=== PATIENT | male | born 1985 | race Caucasian/White ===

== ENCOUNTER 2020-05-09 11:16 | Emergency (ER) | payer BC, SELFPAY ==
[2020-05-09 11:27] VITALS: BP 163/99; PULSE 97; RESP 16; TEMP 37.3; O2SAT 98; BMI 31.3
--- NOTE | 2020-05-09 11:33 | CT_ITS ---
PROCEDURE: CT ABDOMEN PELVIS W CON CLINICAL INDICATION: iv only Lower abdominal pain with right-sided pain, right lower quadrant pain COMPARISON: ABDPELW/O CT ABD PELVIS W/O CONTRAST from 10/12/2015 TECHNIQUE: IV Contrast: 75ML OPTIRAY 350 Oral Contrast none Axial images obtained with sagittal and coronal reformats. All CT scans at the facility use one or more dose reduction, viz: automated exposure control, ma/kV adjustment per patient size (including targeted exams where dose is matched to indication, i.e. head), or iterative reconstruction technique. FINDINGS: LOWER THORAX: No acute finding. Metallic density is present in the upper aspect of the rectus muscle just inferior to the xiphoid from prior injury ABDOMEN & PELVIS: There is diffuse fatty liver infiltration. No focal liver lesion is evident. The gallbladder, spleen, adrenal glands, and pancreas have an unremarkable appearance. No renal or ureteral calculi. No hydronephrosis There is a small metallic density in the cecal region may be due to something the patient has ingested. The appendix has an unremarkable appearance. No intestinal obstruction or free air. There are few fluid-filled loops of small bowel in the lower pelvic region nonspecific. These are nondistended. No diverticulitis. No pelvic mass or abnormal fluid collection. There is a tiny umbilical hernia containing fat. No acute bony findings. There is anterior angulation of the coccyx which is chronic and could be due to an old injury. IMPRESSION: 1. No acute finding. No evidence of appendicitis or ureteral calculus. 2. There are a few scattered fluid-filled loops of small bowel nonspecific but could be seen with mild enteritis. 3. Other nonacute findings as described above Dictated by: John Merritt MD 05/09/2020 13:02 Electronically signed by John Merritt MD in [place] 05/09/2020 13:02
[2020-05-09 11:49] LABS: Microscopic, Urine URINE MICROSCOPIC (MICROSCOPIC)
[2020-05-09 11:52] LABS: Appearance,Urine CLEAR (Clear); Bilirubin,Urine Negative (Negative); Blood, Urine Negative (Negative); Color,Urine YELLOW (Yellow); Glucose,Urine (UA) Negative (Negative); Ketones,Urine Negative (Negative); Leukocyte Esterase,Urine Negative (Negative); Nitrate,Urine Negative (Negative); Protein,Urine Negative (Negative); Specific Gravity, Urine 1.025 (1.005-1.030)
[2020-05-09 11:52] LABS: Basophils % 0.5 % (0.1-2.0); Eosinophils # 0.2 K/mm3 (0.0-0.4); Hematocrit 40.3 % (42.0-52.0); Hemoglobin 13.9 g/dL (14.1-18.0); Lymphocytes # 2.8 K/mm3 (0.7-4.5); Lymphocytes % 53.8 % (10-50); Mean Corpuscular HGB Conc 34.4 g/dL (31.8-35.4); Mean Corpuscular Hemoglobin 33.8 pg (27.0-31.2); Mean Corpuscular Volume 98.2 fl (80-94); Mean Platelet Volume 7.9 fl (7.4-10.4); Monocytes # 0.2 K/mm3 (0.1-1.0); Monocytes % 3.6 % (1.7-9.3); Neutrophils % 38.1 % (37.0-80.0); Platelet Count 255 K/mm3 (142-424); Red Cell Distribution Width 13.4 % (11.5-17.5); White Blood Count 5.2 K/mm3 (4.8-10.8)
[2020-05-09 11:53] LABS: Chloride 107 mmol/L (98-107); MANUAL DIFFERENTIAL MANUAL DIFFERENTIAL (MANUAL DIFF); Potassium 3.9 mmoL/L (3.5-5.1); Sodium 142 mmol/L (136-145)
[2020-05-09 11:55] LABS: Amylase 74 U/L (30-110); Blood Urea Nitrogen 16 mg/dl (9-20); Creatinine Clearance Estimated 138 mL/min (50-200); Estimated Glomerular Filt Rate 86 ml/min (>60); GFR (African American) 103 ML/MIN (>60)
[2020-05-09 11:56] LABS: Alanine Aminotransferase 82 U/L (12-78); Albumin Level 4.6 g/dl (3.5-5.0); Albumin/Globulin Ratio 1.4 (1.1-1.8); Alkaline Phosphatase 79 U/L (38-126); Anion Gap 12.9 mEq/L (5-15); Aspartate Amino Transferase 43 U/L (17-59); Bilirubin,Total 0.6 mg/dl (0.2-1.3); Calcium 9.2 mg/dl (8.4-10.2); Carbon Dioxide 26 mmol/L (22.0-30.0); Globulin 3.3 g/dL (1.3-3.2); Glucose 111 mg/dl (74-100); Lipase 43 U/L (23-300); Total Protein,Serum 7.9 g/dl (6.3-8.2)
[2020-05-09 12:00] LABS: RBC,Urine Occasional #/hpf (0-3); Squamous Epithelial Cell,Urine Occasional #/hpf (0-5)
[2020-05-09 12:03] LABS: Eosinophils % 4 % (0-3); Lymphocytes % 62 % (10-50); Monocytes % 6 % (2-9); Neutrophils % 28 % (42-76); Platelet Estimate Normal; RBC Morphology Normal; Total Cells Counted 100
[2020-05-09 12:41] VITALS: BP 142/63; PULSE 60
--- NOTE | 2020-05-09 13:16 | HMH.EDNVD ---
ED Disposition Clinical Impression: Abdominal pain Qualifiers: Abdominal location: right lower quadrant Qualified Code(s): R10.31 - Right lower quadrant pain Disposition: Home, Self-Care Condition on Discharge: Good Instructions: DI for Acute Abdomen Additional Instructions: recheck if any problems and call pcp for follow up - discussed appendix concerns Referrals: Timmy Hector MD [Primary Care Provider] - - Critical Care Critical Care Time: No Attestation: On 05/09/20, the high probability of a clinically significant, sudden or life threatening deterioration of the following system(s) required my full and direct attention, intervention and personal management. The time I documented below is in addition to time spent performing reported procedures but includes the following listed in this critical care notation. Medical Decision Making - Medical Records Medical records reviewed: Yes: I reviewed the patient's medical records. - David Inquiry Pt receiving controlled substance: No Vital Signs: 05/09/20 11:27 05/09/20 12:41 Temperature 99.1 F Temperature Source Oral Pulse Rate [Left Radial] 97 H 60 Respiratory Rate 16 Blood Pressure [Right Arm] 163/99 H 142/63 H Blood Pressure Mean [Right Arm] 120 89 Blood Pressure Position [Right Arm] Sitting Sitting 02 Sat by Pulse Oximetry 98 Oxygen Delivery Method Nasal Cannula - Lab Data Lab results reviewed: Yes: I reviewed the patient's lab results. Lab Results 05/09/20 11:22: Urine Color Yellow, Urine Appearance Clear, Urine pH 6.0, Ur Specific [place] 1.025, Urine Protein Negative, Urine Glucose (UA) Negative, Urine Ketones Negative, Urine Blood Negative, Urine Nitrate Negative, Urine Bilirubin Negative, Urine Urobilinogen 1.0, Ur Leukocyte Esterase Negative, Urine RBC Occasional, Urine WBC None, Ur Squamous Epith Cells Occasional, Urine Bacteria None 05/09/20 11:35: WBC 5.2, RBC 4.10 L, Hgb 13.9 L, Hct 40.3 L, MCV 98.2 H, MCH 33.8 H, MCHC 34.4, RDW 13.4, Plt Count 255, MPV 7.9, Neut % (Auto) 38.1, Lymph % (Auto) 53.8 H, [place] % (Auto) 3.6, Eos % (Auto) 4.0, Baso % (Auto) 0.5, Neut # (Auto) 2.0, Lymph # (Auto) 2.8, [place] # (Auto) 0.2, Eos # (Auto) 0.2, Baso # (Auto) 0.0, Total Counted 100, Neutrophils % (Manual) 28 L, Lymphocytes % (Manual) 62 H, Monocytes % (Manual) 6, Eosinophils % (Manual) 4 H, Platelet Estimate Normal, RBC Morphology Normal 05/09/20 11:35: Sodium 142, Potassium 3.9, Chloride 107, Carbon Dioxide 26, Anion Gap 12.9, BUN 16, Creatinine 1.00, Estimated Creat Clear 138, Estimated GFR 86, Est GFR ( Amer) 103, Glucose 111 H, Calcium 9.2, Total Bilirubin 0.6, AST 43, ALT 82 H, Alkaline Phosphatase 79, Total Protein 7.9, Albumin 4.6, Globulin 3.3 H, Albumin/Globulin Ratio 1.4, Amylase 74, Lipase 43 Result diagrams: 05/09/20 11:35 05/09/20 11:35 Orders (Tests/Meds): ED MEDICATIONS Discontinued Medications Generic Name Dose Route Start Last Admin Trade Name Adryanq PRN Reason Stop Dose Admin Sodium Chloride 1,000 mls @ 999 mls/hr 05/09/20 11:45 05/09/20 11:37 Sod Chlor 0.9% 1000ml Bag IV 05/09/20 12:45 999 mls/hr .Q1H1M ASHLEY Administration Ioversol 75 ml 05/09/20 12:34 05/09/20 12:34 Rad-Optiray 350 100ml Vial IV 05/09/20 12:35 75 ml ONCE ONE Administration Protocol Sodium Chloride 10 ml 05/09/20 12:34 05/09/20 12:34 Rad-Saline Flush 10ml Syringe IV 05/09/20 12:35 10 ml ONCE ONE Administration ORDERS Category Date Time Status ESR [Erythrocyte Sedimentation Rate] Stat Lab 05/09/20 13:10 Ordered Peripheral Smear Review Routine Lab 05/09/20 13:11 Ordered - CT Data CT Scan: Abdomen, Pelvis Time Received: 13:[address] Reviewed: Yes: I have viewed the radiologist's interpretation Preliminary Findings: Normal/NAD Nausea/Vomiting/Diarrhea HPI - General Chief complaint: Abdominal Pain Stated complaint: sharp stomach pain Time Seen by Provider: 05/09/20 11:30 Mode of Arrival:
[2020-05-09 13:34] LABS: Erythrocyte Sedimentation Rate 19 mm/hr (0-15)
[2020-05-09 13:52] VITALS: BP 143/91; PULSE 53; RESP 16; TEMP 37.1; O2SAT 98
[2020-05-11 13:13] LABS: Peripheral Smear Review Scanned Result
== END 2020-05-09 13:55 | disposition home or self-care (01) ==
PROVIDERS: Emergency Provider Emergency Medicine; PCP Internal Medicine Adolescent Medicine
DX: R10.31 Right lower quadrant pain (principal)
CPT/HCPCS: 74177; 80053; 81001; 82150; 83690; 85007; 85025; 85651; 96365; 96375; 99283; Q9967

== ENCOUNTER 2021-05-17 11:12 | Emergency (ER) | payer BC, SELFPAY ==
[2021-05-17 11:15] VITALS: BP 147/79; PULSE 70; RESP 20; TEMP 36.8; O2SAT 96; BMI 31.3
--- NOTE | 2021-05-17 11:31 | ECG_ITS ---
APPROVED REPORT Exam: Resting ECG HR:63 bpm ECG Measurements Heart Rate 63 AXES DC 126 P 45 QRSd 90 QRS 12 QT 384 T 21 QTc 392 Conclusion Normal sinus rhythm Normal ECG Electronically signed by : Timmy Hector, 05/18/2021 07:17:05
--- NOTE | 2021-05-17 11:44 | HMH.EDUTC ---
[facility] [place] Impression: Muscle strain Disposition: Home, Self-Care Condition on Discharge: Good Instructions: DI for Muscle Strain Referrals: Timmy Hector MD [Primary Care Provider] - 3 days Forms: Work/School Release Medical Decision Making - Medical Records Medical records reviewed: No: I reviewed the patient's medical records. - David Inquiry Pt receiving controlled substance: No Vital Signs: 05/17/21 11:15 05/17/21 12:05 05/17/21 12:11 Temperature 98.2 F 98.4 F 98.5 F Temperature Source Oral Oral Oral Pulse Rate Pulse Rate [Right Brachial] 70 88 67 Respiratory Rate 20 19 16 Blood Pressure Blood Pressure [Right Arm] 147/79 H 144/87 H 145/88 H Blood Pressure Mean [Right Arm] 101 106 107 Blood Pressure Source [Right Arm] Automatic Cuff Automatic Cuff Blood Pressure Position [Right Arm] Sitting Sitting 02 Sat by Pulse Oximetry 96 99 98 Oxygen Delivery Method Room Air 05/17/21 14:42 Temperature 97.9 F Temperature Source Pulse Rate 77 Pulse Rate [Right Brachial] Respiratory Rate 14 Blood Pressure 125/83 Blood Pressure [Right Arm] Blood Pressure Mean [Right Arm] Blood Pressure Source [Right Arm] Blood Pressure Position [Right Arm] 02 Sat by Pulse Oximetry Oxygen Delivery Method - Lab Data Lab results reviewed: Yes: I reviewed the patient's lab results. Lab Results 05/17/21 11:35: Urine Color Yellow, Urine Appearance Clear, Urine pH 6.0, Ur Specific [place] >= 1.030, Urine Protein Negative, Urine Glucose (UA) Negative, Urine Ketones Negative, Urine Blood Negative, Urine Nitrate Negative, Urine Bilirubin Negative, Urine Urobilinogen 0.2, Ur Leukocyte Esterase Negative, Urine RBC Occasional, Urine WBC Occasional, Ur Squamous Epith Cells None, Urine Bacteria Trace 05/17/21 11:37: Urine Color Yellow, Urine Appearance Clear, Urine pH 6.0, Ur Specific [place] 1.005, Urine Protein Negative, Urine Glucose (UA) Negative, Urine Ketones Negative, Urine Blood Trace, Urine Nitrate Negative, Urine Bilirubin Negative, Urine Urobilinogen 0.2, Ur Leukocyte Esterase Negative 05/17/21 12:24: WBC 5.5, RBC 4.42 L, Hgb 14.6, Hct 42.4, MCV 95.8 H, MCH 32.9 H, MCHC 34.4, RDW 13.3, Plt Count 261, MPV 8.3, Neut % (Auto) 47.0, Lymph % (Auto) 43.1, [place] % (Auto) 4.7, Eos % (Auto) 4.6, Baso % (Auto) 0.6, Neut # (Auto) 2.6, Lymph # (Auto) 2.4, [place] # (Auto) 0.3, Eos # (Auto) 0.3, Baso # (Auto) 0.0 05/17/21 12:24: Sodium 141, Potassium 4.1, Chloride 105, Carbon Dioxide 27, Anion Gap 13.1, BUN 14, Creatinine 0.90, Estimated Creat Clear 151, Estimated GFR 96, Est GFR ( Amer) 116, Glucose 96, Calcium 9.2, Total Bilirubin 0.6, AST 38, ALT 71, Alkaline Phosphatase 69, Total Protein 8.1, Albumin 4.8, Globulin 3.3 H, Albumin/Globulin Ratio 1.5, Lipase 72 Result diagrams: 05/17/21 12:24 05/17/21 12:24 Medical Decision Narrative: He was transferred to from the [facility] to the ER due to his chest pain. [facility] [place] General Stated complaint: left rib pain Time Seen by Provider: 05/17/21 11:44 - History of Present Illness Provider Complaint: He c/o left sided chest pain for the the past 2 days. He denies any known injury. He states that the pain is continious. - Related Data Home Medications Medication Instructions Recorded Confirmed Omeprazole [Omeprazole 20mg Tab] 20 mg PO DAILY 05/09/20 05/17/21 Allergies Allergy/AdvReac Type Severity Reaction Status Date / Time No Known Allergies Allergy Verified 10/23/20 11:53 [facility] History - Hepatitis A Screen Attestation statement:: This patient has been screened for Hepatitis A risk factors. I have reviewed the patient's past medical history: Yes Medical History: Denies:: Cancer, Diabetes Mellitus Type 1, Diabetes Mellitus Type 2, MRSA Amputation: No Fractures: No - Social History Smoking Status: Current every day smoker Tobacco Type: smokeless tobacco # Packs/Day (cigarettes): 1 Alcohol Intake: never Occupational Status
[2021-05-17 12:05] VITALS: BP 144/87; PULSE 88; RESP 19; TEMP 36.9; O2SAT 99
[2021-05-17 12:11] VITALS: BP 145/88; PULSE 67; RESP 16; TEMP 36.9; O2SAT 98; BMI 31.3
--- NOTE | 2021-05-17 12:19 | XR_ITS ---
PROCEDURE: XR CHEST 2V CLINICAL HISTORY: left ant rib pain after pulling heavy object COMPARISON: CR CXR CHEST(2 VIEWS-NOT PORTABLE) from 09/05/2013 CR CXR CHEST(2 VIEWS-NOT PORTABLE) from 10/12/2015 CR CXR2V XR chest 2V from 12/30/2018 FINDINGS: The cardiomediastinal silhouette and pulmonary vascularity are within normal limits. The lungs are clear without infiltrates, suspicious nodules, or pleural effusions. No acute bony abnormalities. Metallic foreign body again noted overlying the left medial upper abdomen region. IMPRESSION: No acute findings. Dictated by: Thang Landrum MD 05/17/2021 13:40 Thang Landrum MD in [place] 05/17/2021 13:40
--- NOTE | 2021-05-17 12:19 | CT_ITS ---
PROCEDURE: CT ABDOMEN PELVIS WO CON CLINICAL INDICATION: LUQ abd pain COMPARISON: CT CT ABDOMEN PELVIS W CON from 05/09/2020 TECHNIQUE: Axial images obtained with sagittal and coronal reformats. All CT scans at the facility use one or more dose reduction, viz: automated exposure control, ma/kV adjustment per patient size (including targeted exams where dose is matched to indication, i.e. head), or iterative reconstruction technique. FINDINGS: Scans lung bases show a few small calcified granuloma in the lingula of the left upper lobe and a few small calcified right hilar lymph nodes. No other abnormality. No focal hepatic or splenic lesion. Some diffuse fatty infiltration of the liver noted. A few calcifications noted in the spleen. There are a few tiny bilateral renal calculi. No ureteral or bladder calculi. No CT evidence of obstructive uropathy. No upper abdominal lymphadenopathy. Abdominal aorta is normal. Moderate amount of stool in the colon. Appendix is normal. No distended large or small bowel or bowel wall thickening. Bladder is normal. Prostate gland and seminal vesicles appear normal. A few non-specific mildly enlarged bilateral inguinal lymph nodes again noted. Small unchanged bilateral fat containing inguinal rings without bowel within them. Mild degenerative changes of the lower lumbar spine. No acute bony abnormality. IMPRESSION: Mild bilateral nephrolithiasis. No CT evidence of obstructive uropathy. No free intraperitoneal air or fluid. Normal appendix. Moderate amount of stool in the colon. A few small nonspecific bilateral mildly enlarged inguinal lymph nodes and small bilateral fat unchanged fat containing inguinal rings without bowel within them. Dictated by: Thang Landrum MD 05/17/2021 13:34 Thang Landrum MD in [place] 05/17/2021 13:34
[2021-05-17 12:34] LABS: Microscopic, Urine URINE MICROSCOPIC (MICROSCOPIC)
[2021-05-17 12:36] LABS: Appearance,Urine CLEAR (Clear); Bilirubin,Urine Negative (Negative); Blood, Urine Negative (Negative); Color,Urine YELLOW (Yellow); Glucose,Urine (UA) Negative (Negative); Ketones,Urine Negative (Negative); Leukocyte Esterase,Urine Negative (Negative); Nitrate,Urine Negative (Negative); Protein,Urine Negative (Negative); Specific Gravity, Urine >= 1.030 (1.005-1.030); Urobilinogen,Urine 0.2 EU/dl (0.2)
[2021-05-17 12:36] LABS: Basophils % 0.6 % (0.1-2.0); Eosinophils # 0.3 K/mm3 (0.0-0.4); Eosinophils % 4.6 % (0.1-12.0); Hematocrit 42.4 % (42.0-52.0); Hemoglobin 14.6 g/dL (14.1-18.0); Lymphocytes # 2.4 K/mm3 (0.7-4.5); Lymphocytes % 43.1 % (10-50); Mean Corpuscular HGB Conc 34.4 g/dL (31.8-35.4); Mean Corpuscular Hemoglobin 32.9 pg (27.0-31.2); Mean Corpuscular Volume 95.8 fl (80-94); Mean Platelet Volume 8.3 fl (7.4-10.4); Monocytes # 0.3 K/mm3 (0.1-1.0); Monocytes % 4.7 % (1.7-9.3); Neutrophils # 2.6 K/mm3 (1.8-7.8); Platelet Count 261 K/mm3 (142-424); Red Blood Count 4.42 M/mm3 (4.60-6.20); Red Cell Distribution Width 13.3 % (11.5-17.5); White Blood Count 5.5 K/mm3 (4.8-10.8)
[2021-05-17 12:44] LABS: Bacteria,Urine Trace /lpf; RBC,Urine Occasional #/hpf (0-3); WBC,Urine Occasional #/hpf (0-3)
--- NOTE | 2021-05-17 12:47 | HMH.EDGENADL ---
ED Disposition Clinical Impression: Muscle strain Disposition: Home, Self-Care Condition on Discharge: Good Instructions: DI for Muscle Strain Referrals: Timmy Hector MD [Primary Care Provider] - 3 days - Critical Care Critical Care Time: No Attestation: On 05/17/21, the high probability of a clinically significant, sudden or life threatening deterioration of the following system(s) required my full and direct attention, intervention and personal management. The time I documented below is in addition to time spent performing reported procedures but includes the following listed in this critical care notation. Medical Decision Making - Medical Records Medical records reviewed: Yes: I reviewed the patient's medical records. - David Inquiry Pt receiving controlled substance: No Vital Signs: 05/17/21 11:15 05/17/21 12:05 05/17/21 12:11 Temperature 98.2 F 98.4 F 98.5 F Temperature Source Oral Oral Oral Pulse Rate [Right Brachial] 70 88 67 Respiratory Rate 20 19 16 Blood Pressure [Right Arm] 147/79 H 144/87 H 145/88 H Blood Pressure Mean [Right Arm] 101 106 107 Blood Pressure Source [Right Arm] Automatic Cuff Automatic Cuff Blood Pressure Position [Right Arm] Sitting Sitting 02 Sat by Pulse Oximetry 96 99 98 Oxygen Delivery Method Room Air - Lab Data Lab results reviewed: Yes: I reviewed the patient's lab results. Lab Results 05/17/21 11:35: Urine Color Yellow, Urine Appearance Clear, Urine pH 6.0, Ur Specific [place] >= 1.030, Urine Protein Negative, Urine Glucose (UA) Negative, Urine Ketones Negative, Urine Blood Negative, Urine Nitrate Negative, Urine Bilirubin Negative, Urine Urobilinogen 0.2, Ur Leukocyte Esterase Negative, Urine RBC Occasional, Urine WBC Occasional, Ur Squamous Epith Cells None, Urine Bacteria Trace 05/17/21 12:24: WBC 5.5, RBC 4.42 L, Hgb 14.6, Hct 42.4, MCV 95.8 H, MCH 32.9 H, MCHC 34.4, RDW 13.3, Plt Count 261, MPV 8.3, Neut % (Auto) 47.0, Lymph % (Auto) 43.1, [place] % (Auto) 4.7, Eos % (Auto) 4.6, Baso % (Auto) 0.6, Neut # (Auto) 2.6, Lymph # (Auto) 2.4, [place] # (Auto) 0.3, Eos # (Auto) 0.3, Baso # (Auto) 0.0 05/17/21 12:24: Sodium 141, Potassium 4.1, Chloride 105, Carbon Dioxide 27, Anion Gap 13.1, BUN 14, Creatinine 0.90, Estimated Creat Clear 151, Estimated GFR 96, Est GFR ( Amer) 116, Glucose 96, Calcium 9.2, Total Bilirubin 0.6, AST 38, ALT 71, Alkaline Phosphatase 69, Total Protein 8.1, Albumin 4.8, Globulin 3.3 H, Albumin/Globulin Ratio 1.5, Lipase 72 Result diagrams: 05/17/21 12:24 05/17/21 12:24 - Radiology Data #1 Image(s): Chest Image Reviewed: Yes I reviewed the patient's radiology results Preliminary Findings: Normal/NAD - CT Data CT Scan: Abdomen, Pelvis Time Received: 13:[address] Reviewed: Yes: I have reviewed the patient's CT results Findings Narrative: Mild bilateral nephrolithiasis. No CT evidence of obstructive uropathy. No free intraperitoneal air or fluid. Normal appendix. Moderate amount of stool in the colon. A few small nonspecific bilateral mildly enlarged inguinal lymph nodes and small bilateral fat unchanged fat containing inguinal rings without bowel within them. Medical Decision Narrative: Suspect muscle strain. CT abdomen/pelvis and chest x-ray negative for any acute pathology including no rib fractures, pneumothorax, perforated viscus or free air in the abdomen, obstructive uropathy, bowel obstruction. Labs are reassuring. Commended anti-inflammatories and follow-up with PCP in 2 to 3 days for reevaluation. General Adult HPI - General Chief complaint: Abdominal Pain Stated complaint: left rib pain Time Seen by Provider: 05/17/21 12:15 Mode of Arrival: Ambulatory Limitations: No Limitations Description of Symptoms (Recalled from ER Triage Doc. by RN): pt c/o LLQ and LUQ pain thats 5/10 and constant. pt was lightheaded at work this morning as well. pt states when he stretches out it hurts worse and when he is balle
[2021-05-17 12:50] LABS: Chloride 105 mmol/L (98-107); Potassium 4.1 mmoL/L (3.5-5.1); Sodium 141 mmol/L (136-145)
[2021-05-17 12:53] LABS: Alanine Aminotransferase 71 U/L (12-78); Albumin Level 4.8 g/dl (3.5-5.0); Albumin/Globulin Ratio 1.5 (1.1-1.8); Alkaline Phosphatase 69 U/L (38-126); Anion Gap 13.1 mEq/L (5-15); Aspartate Amino Transferase 38 U/L (17-59); Bilirubin,Total 0.6 mg/dl (0.2-1.3); Blood Urea Nitrogen 14 mg/dl (9-20); Calcium 9.2 mg/dl (8.4-10.2); Carbon Dioxide 27 mmol/L (22.0-30.0); Creatinine Clearance Estimated 151 mL/min (50-200); Estimated Glomerular Filt Rate 96 ml/min (>60); GFR (African American) 116 ML/MIN (>60); Globulin 3.3 g/dL (1.3-3.2); Glucose 96 mg/dl (74-100); Lipase 72 U/L (23-300); Total Protein,Serum 8.1 g/dl (6.3-8.2)
[2021-05-17 14:02] LABS: Apearance,Urine Clear (Clear); Bilirubin,Urine Negative (Negative); Blood, Urine Trace (Negative); Color,Urine Yellow (Yellow); Glucose,Urine (UA) Negative (Negative); Ketones,Urine Negative (Negative); Protein,Urine Negative (Negative); Specific Gravity, Urine 1.005 (1.005-1.030); UTC Leukocyte Esterase,Urine Negative (Negative); UTC Nitrate,Urine Negative (Negative); Urobilinogen,Urine 0.2 EU/dl (0.2)
[2021-05-17 14:42] VITALS: BP 125/83; PULSE 77; RESP 14; TEMP 36.6
== END 2021-05-17 14:49 | disposition home or self-care (01) ==
LOC: UTC 11:26 → ER 12:02
PROVIDERS: Nurse Practitioner Family; Emergency Provider Emergency Medicine; PCP Internal Medicine Adolescent Medicine
DX: S39.011A Strain of muscle, fascia and tendon of abdomen, initial encounter (principal); X50.0XXA Overexertion from strenuous movement or load, initial encounter; F17.290 Nicotine dependence, other tobacco product, uncomplicated; R03.0 Elevated blood-pressure reading, without diagnosis of hypertension
CPT/HCPCS: 71046; 74176; 80053; 81001; 81003; 83690; 85025; 93005; 93041; 99284

== ENCOUNTER 2021-06-24 09:24 | Emergency (ER) | payer BC, SELFPAY ==
[2021-06-24 09:24] VITALS: BP 164/84; PULSE 80; RESP 16; TEMP 36.4; O2SAT 97; BMI 33.2
--- NOTE | 2021-06-24 09:49 | CT_ITS ---
PROCEDURE: CT ABDOMEN PELVIS WO CON CLINICAL INDICATION: R flank pain Right flank pain COMPARISON: CT ABDPELW/O CT ABD PELVIS W/O CONTRAST from 10/12/[address] ABDOMEN PELVIS WO CON from 05/17/2021 TECHNIQUE: Axial images obtained with sagittal and coronal reformats. All CT scans at the facility use one or more dose reduction, viz: automated exposure control, ma/kV adjustment per patient size (including targeted exams where dose is matched to indication, i.e. head), or iterative reconstruction technique. FINDINGS: LOWER THORAX: No acute finding. Small metallic density is present in the lower chest medially ABDOMEN & PELVIS: There is diffuse fatty liver infiltration. There is some focal fatty sparing in the gallbladder fossa region. No obvious hepatic mass evident although lesions may not be detected with this degree of fatty infiltration without IV contrast. Spleen and adrenal glands have an unremarkable appearance as does the pancreas. No evidence of intestinal obstruction or free air. No renal or ureteral calculi evident. No hydronephrosis. There are few small para-aortic lymph nodes which are unchanged. No evidence of appendicitis. Sigmoid diverticula versus nondistended haustra are noted. No evidence of diverticulitis. There are 2 calcific densities in the perineal region centrally measuring 3 and 6 mm.. These may represent phleboliths however, the largest of the 2 calcification is in a slightly different spot compared to the previous exam raising the suspicion of a urethral calculus. There are degenerative changes in the lower thoracic spine. There is anterior angulation of the coccyx. There are small bilateral inguinal hernias containing fat in there is a small umbilical hernia containing fat. IMPRESSION: 1. No renal or ureteral calculi. 2. Possible penile urethral stone versus a phleboliths. 3. Other nonacute findings as described above. Dictated by: John Merritt MD 06/24/2021 11:06 John Merritt MD in [place] 06/24/2021 11:06
--- NOTE | 2021-06-24 09:56 | HMH.EDGENADL ---
ED Disposition Clinical Impression: Abdominal pain Qualifiers: Abdominal location: upper abdomen, unspecified Qualified Code(s): R10.10 - Upper abdominal pain, unspecified Disposition: Home, Self-Care Condition on Discharge: Good Instructions: DI for Abdominal Pain-Adult Prescriptions: Ibuprofen [Ibuprofen 800mg Tablet] 800 mg PO TIDP PRN #20 tab PRN Reason: Moderate Pain Transmission Status: Pending to [id number] Referrals: Timmy Hector MD [Primary Care Provider] - - Critical Care Critical Care Time: No Attestation: On 06/24/21, the high probability of a clinically significant, sudden or life threatening deterioration of the following system(s) required my full and direct attention, intervention and personal management. The time I documented below is in addition to time spent performing reported procedures but includes the following listed in this critical care notation. Medical Decision Making - Medical Records Medical records reviewed: Yes: I reviewed the patient's medical records. - David Inquiry Pt receiving controlled substance: No Vital Signs: 06/24/21 09:24 06/24/21 10:30 Temperature 97.5 F L Temperature Source Oral Pulse Rate 72 Pulse Rate [Right Radial] 80 Respiratory Rate 16 Blood Pressure 112/68 Blood Pressure [Right Arm] 164/84 H Blood Pressure Mean 82 Blood Pressure Mean [Right Arm] 110 Blood Pressure Source [Right Arm] Automatic Cuff Blood Pressure Position [Right Arm] Sitting 02 Sat by Pulse Oximetry 97 97 Oxygen Delivery Method Room Air - Lab Data Lab Results 06/24/21 09:58: WBC 5.7, RBC 4.19 L, Hgb 13.6 L, Hct 41.2 L, MCV 98.3 H, MCH 32.5 H, MCHC 33.1, RDW 13.0, Plt Count 252, MPV 7.8, Neut % (Auto) 48.5, Lymph % (Auto) 42.1, [place] % (Auto) 4.8, Eos % (Auto) 4.2, Baso % (Auto) 0.5, Neut # (Auto) 2.8, Lymph # (Auto) 2.4, [place] # (Auto) 0.3, Eos # (Auto) 0.2, Baso # (Auto) 0.0 06/24/21 09:58: Sodium 142, Potassium 4.1, Chloride 107, Carbon Dioxide 26, Anion Gap 13.1, BUN 17, Creatinine 0.80, Estimated Creat Clear 175, Estimated GFR 110, Est GFR ( Amer) 133, Glucose 100, Calcium 8.9, Total Bilirubin 0.4, AST 46, ALT 101 H, Alkaline Phosphatase 66, Total Protein 8.1, Albumin 4.8, Globulin 3.3 H, Albumin/Globulin Ratio 1.5, Lipase 109 06/24/21 10:30: Urine Color Yellow, Urine Appearance Clear, Urine pH 7.0, Ur Specific [place] 1.020, Urine Protein Negative, Urine Glucose (UA) Negative, Urine Ketones Negative, Urine Blood Negative, Urine Nitrate Negative, Urine Bilirubin Negative, Urine Urobilinogen 1.0, Ur Leukocyte Esterase Negative, Urine RBC None, Urine WBC None, Ur Squamous Epith Cells Occasional, Urine Bacteria None Result diagrams: 06/24/21 09:58 06/24/21 09:58 Orders (Tests/Meds): ED MEDICATIONS Discontinued Medications Generic Name Dose Route Start Last Admin Trade Name Freq PRN Reason Stop Dose Admin Sodium Chloride 1,000 mls @ 999 mls/hr 06/24/21 10:00 06/24/21 09:55 Sod Chlor 0.9% 1000ml Bag IV 06/24/21 11:00 999 mls/hr .Q1H1M ASHLEY Administration Ketorolac Tromethamine 30 mg 06/24/21 09:49 06/24/21 09:55 Ketorolac 30mg/Ml Vial IV 06/24/21 09:50 30 mg ONCE ONE Administration Ondansetron HCl 4 mg 06/24/21 09:56 06/24/21 09:57 Ondansetron 4mg/2ml Vial IV 06/24/21 09:57 4 mg ONCE ONE Administration - CT Data CT Scan: Abdomen, Pelvis Time Received: 11:[address] Reviewed: Yes: I have reviewed the patient's CT results, I have viewed the radiologist's interpretation Findings Narrative: IMPRESSION: 1. No renal or ureteral calculi. 2. Possible penile urethral stone versus a phleboliths. 3. Other nonacute findings as described above. - Reevaluation(s) Time: 11:20 Reevaluation #1: On reevaluation, the patient is feeling much better. Repeat abdominal exam is benign. Patient is tolerating oral intake. Laboratory studies are unremarkable. CT did not show any significant abnormality
[2021-06-24 10:10] LABS: Basophils % 0.5 % (0.1-2.0); Eosinophils # 0.2 K/mm3 (0.0-0.4); Eosinophils % 4.2 % (0.1-12.0); Hematocrit 41.2 % (42.0-52.0); Hemoglobin 13.6 g/dL (14.1-18.0); Lymphocytes # 2.4 K/mm3 (0.7-4.5); Lymphocytes % 42.1 % (10-50); Mean Corpuscular HGB Conc 33.1 g/dL (31.8-35.4); Mean Corpuscular Hemoglobin 32.5 pg (27.0-31.2); Mean Corpuscular Volume 98.3 fl (80-94); Mean Platelet Volume 7.8 fl (7.4-10.4); Monocytes # 0.3 K/mm3 (0.1-1.0); Monocytes % 4.8 % (1.7-9.3); Neutrophils # 2.8 K/mm3 (1.8-7.8); Neutrophils % 48.5 % (37.0-80.0); Platelet Count 252 K/mm3 (142-424); Red Blood Count 4.19 M/mm3 (4.60-6.20); White Blood Count 5.7 K/mm3 (4.8-10.8)
[2021-06-24 10:14] LABS: Alanine Aminotransferase 101 U/L (12-78); Albumin Level 4.8 g/dl (3.5-5.0); Albumin/Globulin Ratio 1.5 (1.1-1.8); Alkaline Phosphatase 66 U/L (38-126); Anion Gap 13.1 mEq/L (5-15); Aspartate Amino Transferase 46 U/L (17-59); Bilirubin,Total 0.4 mg/dl (0.2-1.3); Blood Urea Nitrogen 17 mg/dl (9-20); Calcium 8.9 mg/dl (8.4-10.2); Carbon Dioxide 26 mmol/L (22.0-30.0); Chloride 107 mmol/L (98-107); Creatinine Clearance Estimated 175 mL/min (50-200); Estimated Glomerular Filt Rate 110 ml/min (>60); GFR (African American) 133 ML/MIN (>60); Globulin 3.3 g/dL (1.3-3.2); Glucose 100 mg/dl (74-100); Lipase 109 U/L (23-300); Potassium 4.1 mmoL/L (3.5-5.1); Sodium 142 mmol/L (136-145); Total Protein,Serum 8.1 g/dl (6.3-8.2)
[2021-06-24 10:30] VITALS: BP 112/68; PULSE 72; O2SAT 97
[2021-06-24 10:33] LABS: Microscopic, Urine URINE MICROSCOPIC (MICROSCOPIC)
[2021-06-24 10:35] LABS: Appearance,Urine CLEAR (Clear); Bilirubin,Urine Negative (Negative); Blood, Urine Negative (Negative); Color,Urine YELLOW (Yellow); Glucose,Urine (UA) Negative (Negative); Ketones,Urine Negative (Negative); Leukocyte Esterase,Urine Negative (Negative); Nitrate,Urine Negative (Negative); Protein,Urine Negative (Negative)
[2021-06-24 10:58] LABS: Squamous Epithelial Cell,Urine Occasional #/hpf (0-5)
[2021-06-24 11:29] VITALS: BP 124/74; PULSE 65; RESP 16; TEMP 36.6; O2SAT 98
== END 2021-06-24 11:31 | disposition home or self-care (01) ==
PROVIDERS: Emergency Provider Emergency Medicine; PCP Internal Medicine Adolescent Medicine
DX: R10.11 Right upper quadrant pain (principal); R11.0 Nausea; F17.290 Nicotine dependence, other tobacco product, uncomplicated
CPT/HCPCS: 74176; 80053; 81001; 83690; 85025; 96365; 96375; 99283; J2405

== ENCOUNTER → 2021-08-30 09:15 | Outpatient (CLI) | payer BC, SELFPAY ==
[2021-08-30 10:11] LABS: Amphetamine/Metha Screen,Urine Negative ng/ml (<1000)
[2021-08-30 10:12] LABS: Barbiturates Screen,Urine Negative ng/ml (<200); Benzodiazepines Screen,Urine Negative ng/ml (<200)
[2021-08-30 10:13] LABS: Cannabinoid Screen,Urine Negative ng/ml (<50); Cocaine Screen,Urine Negative ng/ml (<300)
[2021-08-30 10:14] LABS: Methadone Screen,Urine Negative ng/ml (<300)
[2021-08-30 10:15] LABS: Opiate Screen,Urine Negative ng/ml (<300); Phencyclidine Screen,Urine Negative ng/ml (<25)
== END ==
PROVIDERS: Visit Provider Nurse Practitioner Family
DX: R10.31 Right lower quadrant pain (principal); R19.09 Other intra-abdominal and pelvic swelling, mass and lump
CPT/HCPCS: 80305

== ENCOUNTER → 2021-09-03 13:05 | Outpatient (CLI) | payer OTHER, BC, SELFPAY ==
--- NOTE | 2021-09-03 13:09 | US_ITS ---
PROCEDURE: US EXTREMITY RT LIMITED CLINICAL INDICATION: RT INGUINAL PAIN,BULGE IN GROIN AREA COMPARISON: No exams were available for comparison FINDINGS: No bowel containing hernia evident. Small inguinal hernias may not be visualized by rib ultrasound. CT suggested for more thorough evaluation. There is a mildly prominent right inguinal lymph node at 3 x 1 cm. IMPRESSION: No bowel containing hernia apparent. Small fat containing hernias may not be visualized. Suggest CT for more thorough evaluation. Mildly prominent right inguinal lymph node Dictated by: John Merritt MD 09/03/2021 18:07 John Merritt MD in [place] 09/03/2021 18:07
== END ==
PROVIDERS: Visit Provider Nurse Practitioner Family
DX: R10.31 Right lower quadrant pain (principal); R19.09 Other intra-abdominal and pelvic swelling, mass and lump
CPT/HCPCS: 76882

== ENCOUNTER 2021-12-16 16:49 | Emergency (ER) | payer BC, SELFPAY ==
[2021-12-16 16:50] VITALS: BP 145/90; PULSE 92; RESP 18; TEMP 37.1; O2SAT 98; BMI 31.6
[2021-12-16 16:52] VITALS: BMI 31.6
--- NOTE | 2021-12-16 16:53 | ECG_ITS ---
APPROVED REPORT Exam: Resting ECG HR:81 bpm ECG Measurements Heart Rate 81 AXES MA 144 P 61 QRSd 86 QRS 26 QT 358 T 39 QTc 415 Conclusion Normal sinus rhythm Normal ECG Electronically signed by : Timmy Hector MD 12/17/2021 19:56:33
[2021-12-16 16:59] LABS: Coronavirus 19, PCR Not Detected (NotDetected); Influenza A, PCR Not Detected (NotDetected); Influenza B, PCR Not Detected (NotDetected)
[2021-12-16 17:16] VITALS: BP 141/81; PULSE 90; O2SAT 97
--- NOTE | 2021-12-16 17:29 | HMH.EDGENADL ---
ED Disposition Clinical Impression: Viral respiratory illness Disposition: Home, Self-Care Condition on Discharge: Good Instructions: DI for Viral Upper Respiratory Infection -- Adult Additional Instructions: You have been given referral to primary care physician, you will be called to set up appointment for routine follow up. Please take tylenol and ibuprofen for fever and pain control. Please continue to drink plenty of water and eat 3 balanced meals. Please return to the ED for inability to eat and drink, difficulty breathing, persistent chest pain or any other concerning symptoms. Please also discuss with your primary care team regarding further testing for sleep apnea and possible exertion asthma. Referrals: Provider,Referral, [Primary Care Provider] - Forms: Work/School Release Time of Disposition: 17:00 - Critical Care Critical Care Time: No Attestation: On 12/16/21, the high probability of a clinically significant, sudden or life threatening deterioration of the following system(s) required my full and direct attention, intervention and personal management. The time I documented below is in addition to time spent performing reported procedures but includes the following listed in this critical care notation. Medical Decision Making - Medical Records Medical records reviewed: Yes: I reviewed the patient's medical records. - David Inquiry Pt receiving controlled substance: No Vital Signs: 12/16/21 16:50 12/16/21 17:16 12/16/21 17:42 Temperature 98.8 F 98 F Temperature Source Oral Oral Pulse Rate 90 78 Pulse Rate [Radial] 92 H Respiratory Rate 18 18 Blood Pressure 141/81 H 131/74 Blood Pressure [Right Arm] 145/90 H Blood Pressure Mean [Right Arm] 108 Blood Pressure Position Sitting Blood Pressure Position [Right Arm] Sitting 02 Sat by Pulse Oximetry 98 97 Oxygen Delivery Method Room Air Room Air - Lab Data Lab results reviewed: Yes: I reviewed the patient's lab results. Lab Results 12/16/21 16:53: SARS-CoV-2 (PCR) Not detected, Influenza A Untype (PCR) Not detected, Influenza Type B (PCR) Not detected Medical Decision Narrative: Mr. Bourgeois is a 36 yo male w/ no significant PMH woh presents to the ED for congestion, cough, aches, fatigue and subjective fevers. No chest pain present at this time. Patient is afebrile and hemodynamically stable on arrival. Patient is breathing comfortably with no increased work of breathing. Patient has equal breath sounds bilaterally no wheezing, rhales or rhonchi. Patient symptoms consistent w/ viral mediated illness. Patient is swabbed for COVID 19. Low suspicion for pneumoina at this time given current clinical picture will not investigate further. Patient is neg for COVID 19. Perc neg. Patient is instructed to use tylenol and ibuprofen for pain control and to follow up with pcp referral for outpatient management. Patient discharged in stable condition. General Adult HPI - General Chief complaint: Upper Respiratory Infection Stated complaint: cough Time Seen by Provider: 12/16/21 16:50 Mode of Arrival: Ambulatory Source of Information: Patient Limitations: No Limitations Description of Symptoms (Recalled from ER Triage Doc. by RN): TO ED PER [employer] CAR WITH C/O COUGH, RUNNY NOSE, FEVER, HEADACHE, RT SIDE INTERMITTENT CHEST PAIN WORSE WITH COUGHING. X 1 WEEK GETTING PROGRESSIVELY WORSE. - History of Present Illness HPI narrative: Mr. Singh is a 36 yo male unvaccinated w/ COVID 2020 who presents to the ED for non productive cough, congestion, diffuse body aches and headache for a week. Associated symptoms include fatigue. No focal neurological deficts. Patient denies any covid exposures. He reports today a few minutes prior to arrival he had (R) sided chest pain which has since resolved. No dyspnea associated w/ pain. Patient denies any LE swelling/pain or hemoptysis. No bowel or urinary sx. Patient is tolerating PO well. complaint: cough, jaleel
[2021-12-16 17:42] VITALS: BP 131/74; PULSE 78; RESP 18; TEMP 36.6; O2SAT 98
== END 2021-12-16 17:43 | disposition home or self-care (01) ==
PROVIDERS: Emergency Provider Student in an Organized Health Care Education/Training Program
DX: J06.9 Acute upper respiratory infection, unspecified (principal); Z20.822 Contact with and (suspected) exposure to COVID-19
CPT/HCPCS: 93005; 99282; C9803; U0003; U0005

== ENCOUNTER → 2022-01-18 12:17 | Outpatient (CLI) | payer SELFPAY | LOC: COVID.OUT 12:17 | PROVIDERS: Visit Provider Nurse Practitioner | DX: Z20.822 Contact with and (suspected) exposure to COVID-19 (principal) | CPT/HCPCS: C9803; U0003; U0005 ==

== ENCOUNTER 2022-08-04 12:55 | Emergency (ER) | payer SELFPAY ==
[2022-08-04 13:20] VITALS: BP 148/73; PULSE 62; RESP 16; TEMP 36.7; O2SAT 97; BMI 31.6
--- NOTE | 2022-08-04 13:26 | CT_ITS ---
PROCEDURE INFORMATION: Exam: CT Abdomen And Pelvis With Contrast Exam date and time: 08/04/2022 2:04 PM Age: 37 years old Clinical indication: Abdominal pain; Acute; Additional info: Ruq pain TECHNIQUE: Imaging protocol: Computed tomography of the abdomen and pelvis with contrast. Radiation optimization: All CT scans at this facility use at least one of these dose optimization techniques: automated exposure control; mA and/or kV adjustment per patient size (includes targeted exams where dose is matched to clinical indication); or iterative reconstruction. Contrast material: ISOVUE; Contrast volume: 75 ml; Contrast route: IV; COMPARISON: CT ABDOMEN PELVIS WO CON 06/24/2021 10:33 AM FINDINGS: Liver: Hepatic steatosis. Gallbladder and bile ducts: Normal. No calcified stones. No ductal dilation. Pancreas: Normal. No ductal dilation. Spleen: Splenic granulomas Adrenal glands: Normal. No mass. Kidneys and ureters: Small 5 mm cyst lower pole right kidney. Stomach and bowel: Focal collection of air in the wall of the distal stomach along the lesser curvature. Findings compatible with focal ulcer. Appendix: No evidence of appendicitis. Intraperitoneal space: Unremarkable. No free air. No significant fluid collection. Vasculature: Unremarkable. No abdominal aortic aneurysm. Lymph nodes: Unremarkable. No enlarged lymph nodes. Urinary bladder: Unremarkable as visualized. Reproductive: Unremarkable as visualized. Bones/joints: Unremarkable. No acute fracture. Soft tissues: Bilateral fat filled inguinal hernias. Small fat filled umbilical hernia. IMPRESSION: 1. Focal collection of air in the wall of the distal stomach along the lesser curvature. Findings compatible with focal ulcer. 2. Please see above report for discussion of nonacute findings. COMMENTS: Consistent with the [employer]'s Incidental Findings Committee white paper (J Am Alex Radiol 2018): Any incidental renal lesion less than 1 cm or classified as too small to characterize, or any incidental cystic renal lesion characterized as simple-appearing, is likely benign. No follow-up imaging is recommended for these lesions per consensus recommendations based on imaging criteria.
--- NOTE | 2022-08-04 13:53 | HMH.EDABDPAI ---
Discharge Plan Disposition Patient Disposition: Home, Self-Care Condition: Good Prescriptions Prescriptions: New pantoprazole [Protonix] 40 mg tablet,delayed release (DR/EC) 40 mg PO DAILY 28 Days Qty: 28 0RF sucralfate [Carafate] 1 gram tablet 1 g PO TID 28 Days Qty: 84 0RF No Action omeprazole 20 MG tablet,delayed release (DR/EC) 20 mg PO DAILY Referrals Follow up/Referrals: Shantell Up MD [Referring] - See instructions Provider,MD Nancy [Primary Care Provider] - See instructions Clinical Impressions Clinical Impression: Acute epigastric pain, Gastric ulcer Instructions Patient Instructions: DI for Gastric Ulcer, DI for Acute Abdominal Pain, Pantoprazole, Sucralfate Print Language Print Language: German Discharge ED Provider: Manuel Bullock Abdominal Pain HPI General Chief Complaint: Abdominal Pain Stated Complaint: indegstion, pain in R side of stomach Time Seen by Provider: 08/04/22 13:53 Mode of Arrival: Ambulatory Source of Information: Patient Limitations: No Limitations Description of Symptoms (Recalled from ER Triage Doc. by RN): Pt reports each time he eats he has bad indegestion, states he feels like his food just sits on his stomach and also reports RUQ pain, reports pain is sharp in nature. Pt reports pain has been going on for approx 2 weeks. Pt reports diarrhea and a few episodes of vomitting. History of Present Illness HPI narrative: 37-year-old male with history of asthma, presents with epigastric, right upper quadrant abdominal pain and acid reflux. States he feels like every time he eats food sits on his stomach and he has discomfort after eating. Is been ongoing for approximately 2 weeks and he reports associated diarrhea with a few episodes of vomiting as well. He states he did have a history of reflux for which he had been put on Prilosec however recently this has not improved the symptoms of acid reflux which are also acutely worsening. He denies any other treatments, denies ever seeing a document reviewer. Related Data Home Medications Medication Instructions Recorded Confirmed omeprazole 20 mg tablet,delayed 20 mg PO DAILY GERD 05/09/20 08/04/22 release Previous Rx's Medication Instructions Recorded pantoprazole 40 mg tablet,delayed 40 mg PO DAILY 4 weeks #28 tabs 08/04/22 release (Protonix) sucralfate 1 gram tablet (Carafate) 1 g PO TID 4 weeks #84 tabs 08/04/22 Allergies Allergy/AdvReac Type Severity Reaction Status Date / Time No Known Allergies Allergy Verified 10/23/20 11:53 [facility] Social History Smoking Status: Never smoker alcohol intake: never current occupational status: other Travel in the last 8 weeks: None household members: other housing: other ROS Obtained: Yes Systems reviewed as appropriate & no additional complaints except as documented Constitutional Constitutional: Reports system reviewed and no additional complaints, except as documented Eyes Eyes: Reports system reviewed and no additional complaints, except as documented ENT Ears, Nose, Mouth, and Throat: Reports system reviewed and no additional complaints, except as documented Cardiovascular Cardiovascular: Reports system reviewed and no additional complaints, except as documented Respiratory Respiratory: Reports system reviewed and no additional complaints, except as documented Gastrointestinal Gastrointestingal: Reports abdominal pain and nausea Genitourinary Male Genitourinary: Reports system reviewed and no additional complaints, except as documented Musculoskeletal Musculoskeletal: Reports system reviewed and no additional complaints, except as documented Integumentary/Breasts Skin/Breast: Reports system reviewed and no additional complaints, except as documented Neurologic Neurologic: Reports system reviewed and no additional complaints, except as documented Endocrine Endocrine
[2022-08-04 13:57] LABS: Alanine Aminotransferase 63 U/L (12-78); Albumin Level 4.5 g/dl (3.5-5.0); Albumin/Globulin Ratio 1.4 (1.1-1.8); Alkaline Phosphatase 82 U/L (38-126); Anion Gap 10.2 mEq/L (5-15); Aspartate Amino Transferase 35 U/L (17-59); Bilirubin,Total 0.1 mg/dl (0.2-1.3); Blood Urea Nitrogen 11 mg/dl (9-20); Calcium 9.6 mg/dl (8.4-10.2); Carbon Dioxide 27 mmol/L (22.0-30.0); Chloride 106 mmol/L (98-107); Creatinine Clearance Estimated 221 mL/min (50-200); Estimated Glomerular Filt Rate 152 ml/min (>60); GFR (African American) 184 ML/MIN (>60); Globulin 3.3 g/dL (1.3-3.2); Glucose 134 mg/dl (74-100); Lipase 63 U/L (23-300); Potassium 4.2 mmoL/L (3.5-5.1); Sodium 139 mmol/L (136-145); Total Protein,Serum 7.8 g/dl (6.3-8.2)
[2022-08-04 14:09] LABS: Basophils % 0.4 % (0.1-2.0); Eosinophils # 0.1 K/mm3 (0.0-0.4); Eosinophils % 0.7 % (0.1-12.0); Hemoglobin 13.2 g/dL (14.1-18.0); Mean Corpuscular HGB Conc 32.1 g/dL (31.8-35.4); Mean Corpuscular Hemoglobin 32.7 pg (27.0-31.2); Mean Platelet Volume 8.4 fl (7.4-10.4); Monocytes # 0.3 K/mm3 (0.1-1.0); Monocytes % 2.9 % (1.7-9.3); Neutrophils # 7.1 K/mm3 (1.8-7.8); Platelet Count 323 K/mm3 (142-424); Red Blood Count 4.02 M/mm3 (4.60-6.20); Red Cell Distribution Width 13.6 % (11.5-17.5); White Blood Count 9.5 K/mm3 (4.8-10.8)
--- NOTE | 2022-08-04 14:16 | PC.NURSE ---
pt return from CT at this time, pt given tv remote
[2022-08-04 14:22] VITALS: BP 151/79; PULSE 65; RESP 16; O2SAT 97
[2022-08-04 14:31] VITALS: BP 147/76; PULSE 48; RESP 16; O2SAT 97
[2022-08-04 15:01] VITALS: BP 140/81; PULSE 49; RESP 16; O2SAT 95
[2022-08-04 15:49] VITALS: BP 121/71; PULSE 46; RESP 16; TEMP 36.6; O2SAT 98
== END 2022-08-04 15:52 | disposition home or self-care (01) ==
PROVIDERS: Emergency Provider Emergency Medicine
DX: R10.13 Epigastric pain (principal); K25.9 Gastric ulcer, unspecified as acute or chronic, without hemorrhage or perforation
CPT/HCPCS: 74177; 80053; 83690; 85025; 99284; Q9967